=== PATIENT | female | born 1995 | race Two or more races ===

== ENCOUNTER 2018-02-15 15:44 | Emergency (ER) | payer OTHER ==
[2018-02-15 16:08] LABS: URINE HCG POC HCG POSITIVE (Negative)
[2018-02-15] MEDS ORDERED: IPRATRPIUM/ALBUTEROL 0.5/2.5MG 3 ML NEBU. NEB (16:15)
[2018-02-15 16:17] LABS: ADD MAN DIFF? NO
[2018-02-15 16:23] LABS: BASO % 0 % (0-3); BILIRUBIN,URINE NEGATIVE (NEG); CLARITY,URINE CLEAR; COLOR,URINE YELLOW; EOS % 1 % (0-3); GLUCOSE,URINE NEGATIVE (NEG); HEMATOCRIT 39.3 % (36.0-47.0); HEMOGLOBIN 14.1 g/dL (12.0-15.5); LYMPH # 1.6 x10^3/uL (1.0-4.8); LYMPH % 21 % (24-48); MEAN CORPUSCULAR HEMOGLOBIN 32 pg (25-35); MEAN CORPUSCULAR HGB CONC 36 g/dL (31-37); MEAN CORPUSCULAR VOLUME 90 fL (79-100); MONO # 0.4 x10^3/uL (0.0-1.1); MONO % 5 % (0-9); NEUT # 5.7 x10^3uL (1.8-7.7); NEUT % 73 % (31-73); NITRITE,URINE NEGATIVE (NEG); PLATELET COUNT 270 x10^3/uL (140-400); PROTEIN,URINE NEGATIVE (NEG-TRACE); RED BLOOD COUNT 4.38 x10^6/uL (3.50-5.40); RED CELL DISTRIBUTION WIDTH 12.2 % (11.5-14.5); UROBILINOGEN,URINE 0.2 mg/dL (0.2 mg/dL); WHITE BLOOD COUNT 7.7 x10^3/uL (4.0-11.0)
[2018-02-15 16:26] LABS: BARBITURATES NEG (NEG); BENZODIAZEPINES NEG (NEG); CANNABINOIDS POS (NEG); COCAINE NEG (NEG); METHADONE NEG (NEG); OPIATES NEG (NEG); PHENCYCLIDINE NEG (NEG)
[2018-02-15 16:27] LABS: AMPHETAMINE/METHAMPHETAMINE NEG (NEG); ETHANOL, URINE NEG (NEG); PROTHROMBIN TIME PATIENT 12.9 SEC (11.7-14.0)
[2018-02-15 16:36] LABS: ANION GAP 9 (6-14); BLOOD UREA NITROGEN 12 mg/dL (7-20); CARBON DIOXIDE 27 mmol/L (21-32); CHLORIDE 103 mmol/L (98-107); CREATININE 0.6 mg/dL (0.6-1.0); GFR 122.8; GLUCOSE 76 mg/dL (70-99); POTASSIUM 3.3 mmol/L (3.5-5.1); SODIUM 139 mmol/L (136-145)
[2018-02-15 16:37] LABS: TROPONINI < 0.017 ng/mL (0.000-0.055)
[2018-02-15] MEDS: IV NORMAL SALINE 1000ML BAG 1,000 ML IV (16:41)
[2018-02-15 16:42] LABS: ALBUMIN 4.1 g/dL (3.4-5.0); ALK PHOS 70 U/L (46-116); ALT (SGPT) 18 U/L (14-59); AST (SGOT) 11 U/L (15-37); BACTERIA,URINE MODERATE /HPF (0-FEW); DIRECT BILIRUBIN 0.2 mg/dL (0.0-0.2); LIPASE 111 U/L (73-393); MAGNESIUM 1.8 mg/dL (1.8-2.4); SQUAMOUS EPITHELIAL CELL,UR MANY /LPF; TOTAL BILIRUBIN 0.8 mg/dL (0.2-1.0); TOTAL PROTEIN 7.9 g/dL (6.4-8.2)
[2018-02-15] MEDS: ONDANSETRON PF 4 MG/2 ML VIAL. IV (16:43)
[2018-02-15 16:45] LABS: CKMB MASS < 0.5 ng/mL (0.0-3.6); CREATINE KINASE 88 U/L (26-192)
[2018-02-15 16:45] LABS: NT-PRO BNP 41 pg/mL (0-124)
[2018-02-15] MEDS ORDERED: POTASSIUM CHLORIDE 20 MEQ TABLET.ER. PO (19:16)
[2018-02-15] MEDS: POTASSIUM CHLORIDE 20 MEQ TABLET.ER. PO (19:21)
== END 2018-02-15 19:24 | disposition home or self-care (01) ==
LOC: ER 15:44
DX: O99.511 Diseases of the respiratory system complicating pregnancy, first trimester (principal); J45.909 Unspecified asthma, uncomplicated; O23.41 Unspecified infection of urinary tract in pregnancy, first trimester; O26.891 Other specified pregnancy related conditions, first trimester; E87.6 Hypokalemia; M79.602 Pain in left arm; Z88.6 Allergy status to analgesic agent
CPT/HCPCS: 36415; 80048; 80076; 80307; 81001; 81025; 82553; 83690; 83735; 83880; 84484; 85025; 85610; 87086; 93005; 93971; 96361; 96374; 99285-25; J2405; J7030